=== PATIENT | female | born 2000 | race Caucasian/White ===

== ENCOUNTER 2021-09-04 13:07 | Emergency (ER) | payer BC ==
[2021-09-04] MEDS ORDERED: methylPREDNISolone Sod Succ/PF 125 MG/2 ML VIAL ONE (13:58)
[2021-09-04] MEDS ORDERED: Famotidine/PF 20 mg/2ml Vial ONE (13:58)
[2021-09-04] MEDS ORDERED: diphenhydrAMINE 50 MG/ML VIAL ONE (13:58)
== END 2021-09-04 16:22 | disposition home or self-care (01) ==
LOC: CSHERS 13:07
DX: T78.40XA Allergy, unspecified, initial encounter (principal)
CPT/HCPCS: 96374; 96375; J1200; J2930; S0028